=== PATIENT | female | born 1950 | race Asian ===

== ENCOUNTER → 2016-07-22 | Outpatient (CLI) | payer OTHER ==
--- NOTE | 2016-07-22 13:00 | MA ---
Screening Digital Mammogram With Tomosynthesis Clinical Indications: Routine screening. Technique: Standard digital cephalocaudal and tomosynthesis mediolateral oblique projections are obt ained. The digital images are processed by the Learnerator computer aided detection system. Comparison: July 2015, October 2014, May 2014 and July 2013 Breast density: C; The breast tissue is heterogeneously dense, which could obscure detection of small masses. Findings: CAD was reviewed. No suspicious findings are identified. Impression: Negative mammogram. BI-RADS 1. Recommendation: Routine screening is recommended in one year, as long as physical examination is jacobo ign in this patient with moderately dense breast parenchyma. [facility] will send a result letter to the patient. Negative mammography should not preclude additional workup of a clinically suspicious finding. The patient's information is entered into a reminder system with a target due date for her next mammo gram.
== END ==
LOC: FIMAGING 11:48
DX: Z12.31 Encounter for screening mammogram for malignant neoplasm of breast (principal)
CPT/HCPCS: G0202

== ENCOUNTER → 2017-07-25 | Outpatient (CLI) | payer OTHER | LOC: FIMAGING 12:00 | PROVIDERS: ATTEND Family Medicine | DX: Z12.31 Encounter for screening mammogram for malignant neoplasm of breast (principal) ==

== ENCOUNTER → 2017-08-15 | Outpatient (CLI) | payer OTHER | LOC: FIMAGING 13:05 | PROVIDERS: ATTEND Family Medicine | DX: Z13.820 Encounter for screening for osteoporosis (principal); M81.0 Age-related osteoporosis without current pathological fracture; Z78.0 Asymptomatic menopausal state ==

== ENCOUNTER 2017-09-24 17:41 | Observation (INO) | payer OTHER ==
--- NOTE | 2017-09-24 17:56 | CPEKG ---
Heart Rate: 79 RR Interval: 759 P-R Interval: 168 QRSD Interval: 92 QT Interval: 404 QTC Interval: 464 P [place]: 58 QRS [place]: 40 T Wave [place]: 10 EKG Severity - BORDERLINE ECG - EKG Impression: SINUS RHYTHM EKG Impression: PROBABLE LEFT ATRIAL ABNORMALITY EKG Impression: BORDERLINE T ABNORMALITIES, ANTERIOR LEADS Electronically Signed By: Jonnie Weaver 24-Sep-2017 20:31:20
--- NOTE | 2017-09-24 17:57 | EDPHY ---
General Time Seen by Provider: 09/24/17 17:49 Narrative: CHIEF COMPLAINT: Chest pressure HISTORY OF PRESENT ILLNESS: Patient complains of left-sided chest pressure that started at 4:30 p.m. Today. This started while she was at a constitution party. This was a faculty constitution party for [employer]. She was not doing anything exertional. It is described as a left-sided chest pressure that radiates through to her left shoulder blade 2 days ago. At that time she had no chest pain no. For brief moment was sharp and then return to dull pressure only. It is 3 or 4/10. Nonexertional. Nonradiating. No diaphoresis, nausea or vomiting. No shortness of breath. No trauma or injury. No recent travel, trauma or surgery. She does not take any exogenous hormones. No fever chills. No cough. No history of coronary artery disease or [place]. She has never had a stress test or heart catheterization. She has never smokes cigarettes. No diabetes mellitus. No CVA or TIA. She does have controlled hypertension with single drug therapy. She has no known family history of coronary artery disease but does have hypertension in the family. No other associated complaints or modifying factors. REVIEW OF SYSTEMS: Ten systems reviewed and are negative unless otherwise noted in the HPI PCP: Dr. Mojgan Tony SPECIALISTS: None PAST MEDICAL HISTORY: Eczema, questionable diagnosis of asthma, hypertension, borderline cholesterol levels, recent UTI status post Nitro-Bid therapy PAST SURGICAL HISTORY: No recent surgeries SOCIAL HISTORY: Never smoker. Exposed to secondary smoke for 30 years as a child in [place]. No drug or alcohol use. 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 EXAMINATION General Appearance: Alert, no distress. Non diaphoretic. Well-developed well- nourished Head: normocephalic, atraumatic Eyes: Pupils equal and round, no conjunctival pallor or injection ENT, Mouth: Mucous membranes moist Neck: Normal inspection, supple, non-tender. Respiratory: Lungs are clear to auscultation. No wheezing rhonchi or crackles Cardiovascular: Regular rate and rhythm.No murmur Gastrointestinal: Abdomen is soft and nontender. No tympany rigidity Back: non-tender, no bony abnormalities Neurological: GCS 15. A&O, nonfocal, normal gait Skin: Warm and dry, nonspecific dermatitis of the distal forearms and thenar eminence. This is reportedly chronic per patient. No petechiae or purpura. No desquamation. No splinter lesions or abnormalities of the nails or nail beds. Extremities: Nontender, no pedal edema. No pedal edema. No erythema of the extremities. No asymmetry of the extremities. No pain with passive dorsiflexion of the ankles. Psychiatric: Mood and affect normal DIFFERENTIAL DIAGNOSES: Including but not limited to ACS, PE, pleurisy, pericarditis, musculoskeletal pain MDM: 6:06 p.m. Left-sided chest pressure of 90 min duration. Nonexertional. No radiating pain. No predictable modifying factors. Her vital signs are within normal limits. She has no previous diagnosis of CAD. No family risk factors. Risk factors include age and hypertension. Heart score is 2 at this time with a pending troponin. She is in no acute distress resting comfortably on a cardiac rehabilitation program director with IV placement. I have ordered aspirin to be chewed. Chest x-ray pending. 6:23 p.m. CBC unremarkable. Chemistry unremarkable. The troponin and BNP are still pending. Her chest x-ray is currently being obtained at this time. 6:55 p.m. Troponin is negative. BNP is within normal limits. Chest x-ray has been read as no infiltrate with mild peribronchial thickening. I discussed the case with Dr. Weaver. She is currently at a heart score of 3. His recommendation and Plan to keep her here for a repeat troponin at 4 hour grabiel. And re-evaluated at that time. She remains in no acute distress on a cardiac rehabilitation program director. I discussed this with the patient she is agreeable with this plan of waiting for repeat troponin. This would place her at the 9:55 p.m. Repeat troponin. 8:00 p.m. Patient re-evaluated. She is resting comfortably. Her spouse is at bedside. She remains on a cardiac rehabilitation program director. Pain is minimal. 9:00 p.m. Patient re-evaluated. Resting comfortably 9:55 p.m. Repeat troponin ordered. This will be a 4 hr troponin for the patient. Initial troponin was completely within normal limits. 10:30 p.m. Troponin has returned. It is minimally elevated but none the less that is not normal. It is now 0.015. I have re-evaluated the patient. She is pain-free at this time S with the aspirin. This is without further pain medication or nitroglycerin. Given the patient's history, EKG and this elevated troponin, albeit minimally, I do feel that she is not safe for discharge home. She will require admission to the hospital for observation, serial troponins and possibly further intervention. I paged the hospitalist at this time. I discussed the plan with the patient's spouse and they agree to pee with this plan. 10:45 p.m. Case discussed with hospitalist Dr. Cotto. She will admit the patient to her service. She is admitted stable condition to PCU bed. She is requesting cardiology consultation I have paged them. 10:50 p.m. Case discussed with hadoop admin Dr. Chloé Rand. She will provide consultation 1st thing in the morning. She request repeat EKG. She is available at any time if something changes with the patient's status. 11:00 p.m. Repeat EKG performed. As read by me, there is single inverted T-wave in lead V3. The sub mm depression in the anterolateral leads no longer appreciated. He is admitted in stable condition. EKG interpretation: Dr. Weaver The sinus rhythm, rate 79. QT 404. PR160. Very mild, sub 1 mm depression in the anterolateral leads single inverted T-wave in V3 SUPERVISION: Patient was independently examined, but I discussed the case with my secondary supervising physician . Patient was evaluated and examined in conjunction with my secondary supervising physician as documented. We have both examined the patient. - Diagnostics Imaging Results: Imaging Impressions Chest X-Ray 09/24/17 18:07 Impression: Mild peribronchial thickening, with no focal infiltrate. - History Smoking Status: Never smoked - Objective Vital Signs: Initial Vital Signs Temperature (C) 98.8 F 09/24/17 17:44 Heart Rate 78 09/24/17 17:44 Respiratory Rate 16 09/24/17 17:44 Blood Pressure 156/97 H 09/24/17 17:44 O2 Sat (%) 97 09/24/17 17:44 O2 Delivery Mode Room Air Allergies/Adverse Reactions: amoxicillin Allergy (Verified 09/24/17 18:13) Home Medications: Medication Instructions Recorded Amlodipine Besylate 09/24/17 Laboratory Results: Laboratory Results 09/24/17 17:55 09/24/17 17:55 09/24/17 09/24/17 09/24/17 22:00 17:55 17:55 WBC RBC Hgb Hct MCV MCH MCHC RDW Plt Count MPV Neut % (Auto) Lymph % (Auto) [place] % (Auto) Eos % (Auto) Baso % (Auto) Nucleat RBC Rel Count Absolute Neuts (auto) Absolute Lymphs (auto) Absolute Monos (auto) Absolute Eos (auto) Absolute Basos (auto) Absolute Nucleated RBC Immature Gran % Immature Gran # PT 12.5 SEC SEC (12.0-15.0) INR 0.91 (0.83-1.16) APTT 30.2 SEC SEC (23.0-38.0) Sodium 142 mEq/L mEq/L (135-145) Potassium 3.8 mEq/L mEq/L (3.5-5.2) Chloride 101 mEq/L mEq/L (97-110) Carbon Dioxide 29 mEq/l mEq/l (22-31) Anion Gap 12 mEq/L mEq/L (8-16) BUN 17 mg/dL mg/dL (7-23) Creatinine 0.7 mg/dL mg/dL (0.6-1.0) Estimated GFR > 60 Glucose 91 mg/dL mg/dL (70-100) Calcium 9.3 mg/dL mg/dL (8.5-10.4) Troponin I 0.015 ng/mL ng/mL < 0.012 ng/mL ng/mL (0.000-0.034) (0.000-0.034) NT-Pro-B Natriuret Pep 72 pg/mL pg/mL (0-125) Lipase 176 IU/L IU/L (23-300) 09/24/17 17:55 WBC 5.29 10^3/uL 10^3/uL (3.80-9.50) RBC 4.84 10^6/uL 10^6/uL (4.18-5.33) Hgb 14.8 g/dL g/dL (12.6-16.3) Hct 43.2 % % (38.0-47.0) MCV 89.3 fL fL (81.5-99.8) MCH 30.6 pg pg (27.9-34.1) MCHC 34.3 g/dL g/dL (32.4-36.7) RDW 12.4 % % (11.5-15.2) Plt Count 219 10^3/uL 10^3/uL (150-400) MPV 8.7 fL fL (8.7-11.7) Neut % (Auto) 34.2 % L % (39.3-74.2) Lymph % (Auto) 47.1 % H % (15.0-45.0) [place] % (Auto) 7.6 % % (4.5-13.0) Eos % (Auto) 9.6 % H % (0.6-7.6) Baso % (Auto) 1.1 % % (0.3-1.7) Nucleat RBC Rel Count 0.0 % % (0.0-0.2) Absolute Neuts (auto) 1.81 10^3/uL 10^3/uL (1.70-6.50) Absolute Lymphs (auto) 2.49 10^3/uL 10^3/uL (1.00-3.00) Absolute Monos (auto) 0.40 10^3/uL 10^3/uL (0.30-0.80) Absolute Eos (auto) 0.51 10^3/uL H 10^3/uL (0.03-0.40) Absolute Basos (auto) 0.06 10^3/uL 10^3/uL (0.02-0.10) Absolute Nucleated RBC 0.00 10^3/uL 10^3/uL (0-0.01) Immature Gran % 0.4 % % (0.0-1.1) Immature Gran # 0.02 10^3/uL 10^3/uL (0.00-0.10) PT INR APTT Sodium Potassium Chloride Carbon Dioxide Anion Gap BUN Creatinine Estimated GFR Glucose Calcium Troponin I NT-Pro-B Natriuret Pep Lipase Medications Given: Discontinued Medications Aspirin (Aspirin) 324 mg PO EDNOW ONE Stop: 09/24/17 18:16 Last Admin: 09/24/17 18:16 Dose: 324 mg Departure - Departure Disposition: [facility] Acute Clinical Impression: Elevated troponin I level Chest pain Qualifiers: Chest pain type: unspecified Qualified Code(s): R07.9 - Chest pain, unspecified Condition: Good Referrals: Mojgan Tony MD [Primary Care Provider] - As per Instructions
[2017-09-24 18:06] LABS: PLATELET COUNT 219 10^3/uL (150-400)
[2017-09-24] MEDS ORDERED: ASPIRIN 81 MG CHEWABLE TAB PO ONE (18:15)
[2017-09-24 18:21] LABS: INR 0.91 (0.83-1.16); PROTIME(PATIENT) 12.5 SEC (12.0-15.0)
[2017-09-24] MEDS ORDERED: LORazepam 0.5 MG TAB PO PRN (22:49)
[2017-09-24] MEDS ORDERED: ONDANSETRON 4 MG/2 ML VIAL IVP PRN (22:49)
[2017-09-24] MEDS ORDERED: ACETAMINOPHEN 325 MG TAB PO PRN (22:49)
[2017-09-24] MEDS ORDERED: HYDROCODONE/APAP 5/325 TAB PO PRN (22:49)
--- NOTE | 2017-09-24 22:55 | CPEKG ---
Heart Rate: 74 RR Interval: 811 P-R Interval: 180 QRSD Interval: 84 QT Interval: 416 QTC Interval: 462 P [place]: 58 QRS [place]: 33 T Wave [place]: 9 EKG Severity - BORDERLINE ECG - EKG Impression: SINUS RHYTHM EKG Impression: PROBABLE LEFT ATRIAL ABNORMALITY EKG Impression: BORDERLINE T ABNORMALITIES, ANTERIOR LEADS Electronically Signed By: Dawson Norman 27-Sep-2017 11:16:26
[2017-09-24] MEDS ORDERED: NITROGLYCERIN 0.4 MG BTL SL PRN (22:57)
[2017-09-25 04:40] VITALS: O2SAT 94
[2017-09-25 06:18] LABS: PLATELET COUNT 190 10^3/uL (150-400)
--- NOTE | 2017-09-25 07:34 | PDGENHP ---
History and Physical - Chief Complaint Left Chest pressure - History of Present Illness Source-patient provides history appears reliable. EMR was reviewed and case discussed with ED provider. HPI-this is a very pleasant 67-year-old female with past medical history significant for hypertension, asthma, eczema, HLD who presents to the emergency department today with complaints of 90 min of chest pain that started approximately 4:30 p.m. Patient reports that time she initially did have some nausea and vomiting the day previously as well as some complaints of a left shoulder blade pain with radiation to her right deltoid area with some numbness tingling. At that time she did not have any chest pain or pressure. Today patient reports that she was driving to her dinner alliance party and develops nausea without vomiting. She denies any associated diaphoresis, shortness of breath. Patient reports that she developed a little bit of stabbing left chest pain that was only showed very short duration by few minutes followed by chest heaviness. Patient denies any improvement with position. She is concerned that she may have had a little bit of pectoral strain. Patient does remain quite active and exercises on a regular basis. She has not previously had any complaints of an add anginal type symptoms. Patient was previously recently placed on Macrobid for UTI. Patient without any family history of CAD or [place]. History Information - Allergies/Home Medication List Allergies/Adverse Reactions: amoxicillin Allergy (Verified 09/24/17 18:13) Home Medications: Amlodipine Besylate 09/24/17 [Last Taken Unknown] I have personally reviewed and updated: family history, medical history, social history, surgical history - Past Medical History Additional medical history: HTN, HDL, eczema, asthma, history UTI recently, history of leukopenia resolved. - Surgical History Additional surgical history: Left axillary abscess I&D in her youth. [place] tooth extraction. - Family History Additional family history: Mother and brother with history of hypertension. Mother is . Father from lung cancer. 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 Course status is limited. Patient is amenable to CPR but does not want intubation. Review of Systems Review of Systems: ROS: 10pt was reviewed & negative except for what was stated in HPI & below Constitutional: Reports: fever, recent illness (UTI treated). Denies: chills EENMT: Reports: no symptoms. Denies: nose congestion, sore throat Cardiac: Reports: chest pain, other (See HPI). Denies: edema, lightheadedness, palpitations Respiratory: Denies: cough, shortness of breath Gastrointestinal: Reports: nausea. Denies: vomitting, abdominal pain, diarrhea Genitourinary: Denies: dysuria, hematuria Muscolosketal: Reports: muscle pain (Left lateral pectoral muscle.). Denies: back pain Neurological: Reports: numbness (Left deltoid a few days ago now resolved.). Denies: headache, tremors, weakness Hematologic/Lymphatic: Denies: anemia Physical Exam Physical Exam: Selected Entries 09/24/17 17:44 Blood Pressure Automatic Method Heart Rate 78 Respiratory 16 Rate O2 Sat (%) 97 Temperature (C) 37.1 C Blood Pressure 156/97 H Mean Arterial 116 H Pressure (MAP) O2 Delivery Room Air Mode Temperature Oral Source Constitutional: no apparent distress, not in pain, other (NAD. Pleasant adult female is lying quietly in bed. She is pleasant and in good spirits.) Eyes: PERRL, anicteric sclera, EOMI, No scleral injection Ears, Nose, Mouth, Throat: moist mucous membranes, other (No nasal discharge.), No poor dentition Cardiovascular: regular rate and rhythym, no murmur, rub, or gallop, pulses symmetric bilaterally, No systolic murmur, No edema Peripheral Pulses: 2+: dorsalis-pedis (R), dorsalis-pedis (L) Respiratory: no respiratory distress, clear to auscultation, No rhonchi Gastrointestinal: normoactive bowel sounds, soft, non-tender abdomen, No tenderness, No distension Genitourinary: no bladder tenderness, No orta in urethra Skin: warm, erythema, rash (Patient with chronic skin changes to her hands and her feet. Some cracking. Persistent erythema without any induration.) Musculoskeletal: full muscle strength, No pain with ROM, No generalized weakness (Patient able to sit up independently.) Neurologic: AAOx3, sensation intact bilaterally, other (Nonfocal exam.), No facial droop Psychiatric: interacting appropriately, not anxious, not encephalopathic, thought process linear Lab Data & Imaging Review 09/25/17 06:10 03/26/18 06:10 WBC 4.45 10^3/uL (3.80-9.50) 09/25/17 06:10 RBC 4.50 10^6/uL (4.18-5.33) 09/25/17 06:10 Hgb 13.5 g/dL (12.6-16.3) 09/25/17 06:10 Hct 39.0 % (38.0-47.0) 09/25/17 06:10 MCV 86.7 fL (81.5-99.8) 09/25/17 06:10 MCH 30.0 pg (27.9-34.1) 09/25/17 06:10 MCHC 34.6 g/dL (32.4-36.7) 09/25/17 06:10 RDW 12.4 % (11.5-15.2) 09/25/17 06:10 Plt Count 190 10^3/uL (150-400) 09/25/17 06:10 MPV 8.3 fL (8.7-11.7) L 09/25/17 06:10 Neut % (Auto) 40.0 % (39.3-74.2) 09/25/17 06:10 Lymph % (Auto) 41.8 % (15.0-45.0) 09/25/17 06:10 [place] % (Auto) 6.5 % (4.5-13.0) 09/25/17 06:10 Eos % (Auto) 9.9 % (0.6-7.6) H 09/25/17 06:10 Baso % (Auto) 1.6 % (0.3-1.7) 09/25/17 06:10 Nucleat RBC Rel Count 0.0 % (0.0-0.2) 09/25/17 06:10 Absolute Neuts (auto) 1.78 10^3/uL (1.70-6.50) 09/25/17 06:10 Absolute Lymphs (auto) 1.86 10^3/uL (1.00-3.00) 09/25/17 06:10 Absolute Monos (auto) 0.29 10^3/uL (0.30-0.80) L 09/25/17 06:10 Absolute Eos (auto) 0.44 10^3/uL (0.03-0.40) H 09/25/17 06:10 Absolute Basos (auto) 0.07 10^3/uL (0.02-0.10) 09/25/17 06:10 Absolute Nucleated RBC 0.00 10^3/uL (0-0.01) 09/25/17 06:10 Immature Gran % 0.2 % (0.0-1.1) 09/25/17 06:10 Immature Gran # 0.01 10^3/uL (0.00-0.10) 09/25/17 06:10 PT 12.5 SEC (12.0-15.0) 09/24/17 17:55 INR 0.91 (0.83-1.16) 09/24/17 17:55 APTT 30.2 SEC (23.0-38.0) 09/24/17 17:55 Sodium 144 mEq/L (135-145) 09/25/17 06:10 Potassium 3.8 mEq/L (3.5-5.2) 09/25/17 06:10 Chloride 110 mEq/L (97-110) 09/25/17 06:10 Carbon Dioxide 26 mEq/l (22-31) 09/25/17 06:10 Anion Gap 8 mEq/L (8-16) 09/25/17 06:10 BUN 14 mg/dL (7-23) 09/25/17 06:10 Creatinine 0.7 mg/dL (0.6-1.0) 09/25/17 06:10 Estimated GFR > 60 09/25/17 06:10 Glucose 77 mg/dL (70-100) 09/25/17 06:10 Calcium 9.1 mg/dL (8.5-10.4) 09/25/17 06:10 Troponin I 0.020 ng/mL (0.000-0.034) 09/25/17 06:10 NT-Pro-B Natriuret Pep 72 pg/mL (0-125) 09/24/17 17:55 Lipase 176 IU/L (23-300) 09/24/17 17:55 Laboratory Tests 09/24/17 09/24/17 09/24/17 17:55 17:55 17:55 WBC 5.29 RBC 4.84 Hgb 14.8 Hct 43.2 MCV 89.3 MCH 30.6 MCHC 34.3 RDW 12.4 Plt Count 219 MPV 8.7 Neut % (Auto) 34.2 L Lymph % (Auto) 47.1 H [place] % (Auto) 7.6 Eos % (Auto) 9.6 H Baso % (Auto) 1.1 Nucleat RBC Rel Count 0.0 Absolute Neuts (auto) 1.81 Absolute Lymphs (auto) 2.49 Absolute Monos (auto) 0.40 Absolute Eos (auto) 0.51 H Absolute Basos (auto) 0.06 Absolute Nucleated RBC 0.00 Immature Gran % 0.4 Immature Gran # 0.02 PT 12.5 INR 0.91 APTT 30.2 Sodium 142 Potassium 3.8 Chloride 101 Carbon Dioxide 29 Anion Gap 12 BUN 17 Creatinine 0.7 Calcium 9.3 Troponin I < 0.012 NT-Pro-B Natriuret Pep 72 Lipase 176 Imaging Review: Portable AP Chest, at 6:21 PM Clinical History: 67-year-old female with left-sided chest and shoulder pain, and abdominal pressure. Comparison Study: Chest, dated 04/06/2015. Findings: Telemetry monitoring lead lines are present. The cardiac and mediastinal silhouette is normal in size. There is mild central perihilar bronchial wall thickening. There is no focal alveolar consolidation. There is no pleural effusion, peripheral interstitial edema, or pneumothorax. The osseous structures are age-appropriate. Air-filled splenic flexure is seen in the left upper quadrant of the abdomen. There is no free, subdiaphragmatic air. Impression: Mild peribronchial thickening, with no focal infiltrate. EKG additional interpertation: 09/24/[id number] in the 70s. Q-wave in lead 3 with a T-wave inversion. Patient also with T-wave inversions in the anterior leads. There is less than 1 mm depression in the lateral leads. QTC is 464. Repeat EKG at 2250 showing similar findings with persistent small Q-wave in 3 T- wave and 2 wave inversions in anterior leads but less noticeable on ST depression in the lateral leads. Assessment & Plan Assessment: Chest pain (Acute) - patient currently chest pain-free. She received aspirin in the emergency department. She has some subtle EKG changes with a T-wave inversions in the anterior leads and some less than 1 mm depressions in the lateral leads. Cardiology was consulted from the emergency department and will plan to consult on this patient this morning. Serial enzymes have been minimally trending upward but still within normal range. Patient's current heart score is 5. She did not receive any Lovenox and I requested ED to discuss with on cardiology prior to her arrival on PCU. EKG changes - nonspecific EKG changes with some improvement in patient's less than [address] depressions on repeat EKG after chest pain had resolved. Will plan to leave nitroglycerin and morphine available p.r.n. For pain. Chronic medical issues Benign essential hypertension - blood pressures at this time are acceptable. Patient was previously on lisinopril but started to develop some facial edema and this was previously discontinued. She is not 100% sure of her current home regimen but medication list is noting amlodipine. Will plan to verify and continue. Asthma - patient without any acute exacerbation at this time. Will continue monitor and provide albuterol if needed. Eczema - patient with chronic dermatitis in her hands and her feet that remains unchanged. She utilizes topical treatment on patient can resume at discharge. HLD - patient reports a borderline cholesterol. Will plan to repeat a panel this morning. Consider a treatment as appropriate pending results and cardiac workup. FEN - IV fluid overnight. Patient will be NPO pending Cardiology recommendations. Electrolyte monitoring and replacement p.r.n.. PPX-SCDs. Holding anticoagulation pending Cardiology evaluation. Cor status-patient is limited. She does not want intubation but amenable to cardiac resuscitation. Disposition-patient is admitted to observation status at this time on PCU for close cardiac monitoring pending further evaluation and recommendations from Cardiology.
[2017-09-25 08:40] VITALS: BP 122/74; PULSE 76; RESP 14; TEMP 98.5
--- NOTE | 2017-09-25 08:59 | CPEKG ---
Heart Rate: 73 RR Interval: 822 P-R Interval: 168 QRSD Interval: 90 QT Interval: 420 QTC Interval: 463 P [place]: 73 QRS [place]: 67 T Wave [place]: 47 EKG Severity - NORMAL ECG - EKG Impression: SINUS RHYTHM Electronically Signed By: Dawson Norman 27-Sep-2017 11:15:52
--- NOTE | 2017-09-25 11:08 | GCON ---
[f rep st] CONSULTATION CARDIOLOGY CONSULT DATE OF CONSULTATION: 09/25/2017 CHIEF COMPLAINT: Chest pain. HISTORY OF PRESENT ILLNESS: We were asked by Dr. Christie to visit with this patient. The patient is a pleasant 67-year-old female with hypertension, dyslipidemia, mild aortic regurgitation. She has no known history of coronary disease. Recently, she has had troubles with a UTI and then a reaction to the antibiotic. A couple of days ag o, she started experiencing some right shoulder pain that occurred after yoga. Over the weekend, she had a little bit of nausea and headache without vomiting or diarrhea. Yesterday, she was out for he r usual walk and started to have some chest pain. This resolved with rest; however, when she got kingsley e, she noticed some chest pressure that occurred for about 2 hours. Therefore, she presented to the ER. In the ER, her pain resolved with aspirin, and she has not had recurrent pain. She has not had dyspn ea, presyncope, syncope, or palpitations. She denies a history of lower extremity edema. The only c ardiac testing she has had is the echocardiogram in our office in 2014 that showed normal ejection fr action and mild mitral regurgitation. REVIEW OF SYSTEMS: A full 10-point review of systems was performed and was negative except that whic h is outlined in History of Present Illness. PAST MEDICAL HISTORY: 1. Hypertension. 2. Mild aortic regurgitation. 3. Dyslipidemia. 4. Reactive airways disease. OUTPATIENT MEDICATIONS: Norvasc 2.5 mg daily, Symbicort, vitamin D3, vitamin B12, multivitamin, omeg a-3 fatty acids. SOCIAL HISTORY: The patient does not smoke cigarettes or drink significant amounts of alcohol. FAMILY HISTORY: Not applicable to the current case. PHYSICAL EXAM: VITAL SIGNS: Blood pressure 122/74, heart rate 76, oxygen saturation is 94% on room air. Respiratory rate is 14. She is afebrile. GENERAL: Well-appearing older female in no distress . HEENT: Sclerae clear and free of jaundice. Mucous membranes are moist. Normocephalic, atraumati c. CARDIOVASCULAR: JVP is less than 10. Carotids equal 2+ without bruit. Regular rate and rhythm without murmur, rub, or gallop. LUNGS: Clear to auscultation bilaterally without wheezes, rhonchi, or rales. ABDOMEN: Soft, nontender, nondistended without bruits, masses, hepatosplenomegaly. EXTRE MITIES: Warm, well perfused of denies cyanosis, clubbing, or edema. NEURO: Alert and oriented x3 w ithout gross focal neurological deficits. Appropriate mood and affect. MUSCULOSKELETAL: She does h ave some mild tenderness to palpation over her left pectoral and parasternal region. There is no jacklyn h. DATA: CBC is essentially normal except for minimally elevated eosinophil count. INR normal. Sodium 144, potassium 3.8, chloride 110, bicarb 26, BUN 14, creatinine 0.7. Troponin negative x4. BNP 72. Lipase is 176. LDL cholesterol is 88 with total cholesterol of 173, triglycerides 107, and HDL of 64. EKG reviewed by me x2: Normal sinus rhythm without ischemic changes. Chest x-ray reviewed by me: Mild peribronchial thickening without acute cardiopulmonary process. Echocardiogram in our office in 2014 showed mild normal LV size and systolic function. Mild aortic r egurgitation. ASSESSMENT AND PLAN: A 67-year-old female with cardiac risk factors of age, hypertension, and appare ntly past history of dyslipidemia. She presents with chest pain that has some typical and some atypi bronson features. Her cardiac biomarkers are reassuring as is her normal EKG. She is currently not havi ng any ongoing chest pain. 1. Chest pain: Further risk stratification with an exercise stress test is reasonable. She would b e a candidate for primary prevention aspirin as an outpatient. More recommendations to follow based on the results of her stress test. If this is normal, she may be discharged. 2. Hypertension: Currently well controlled. Continue Norvasc. 3. History of mild aortic regurgitation: She can get an echocardiogram as an outpatient in the next 6 months or so. Thank you for allowing us to participate in this patient's care. We will follow with you. /[id number]/MODL
--- NOTE | 2017-09-25 12:18 | CPR ---
[f rep st] NONINVASIVE CARDIAC PROCEDURE REPORT DATE OF PROCEDURE: 09/25/2017 PROCEDURE PERFORMED: Treadmill stress test. REASON FOR TEST: Chest pain. RESTING EKG: Shows a regular sinus rhythm with a ventricular rate of 90. The 3-lead shows T-wave in version. She has Q-wave in V2. Resting blood pressure is 102/70. STRESS TEST PORTION: She was exercised according to the Eric protocol for a total of 9 minutes. Erasmo kim tolerated this well. She had no chest pain, shortness of breath, or other anginal symptoms. Her p eak heart rate was 166, peak blood pressure 146/80. MET level 10.2. She surpassed her 100% maximal heart rate. There were no EKG changes during exercise. Her T-wave by the end of exercise had gone u pright in V3. She had no arrhythmias. RECOVERY: She did spontaneously recover with resting heart rate 100, resting blood pressure 110/80 a t 4 minutes and 41 seconds post exercise. She had no recovery arrhythmias. At this time, she efren mckeon is stable to return to her room. /[id number]/MODL
--- NOTE | 2017-09-25 12:50 | PDDCSUM ---
Discharge Summary Discharge Summary: DISCHARGE DIAGNOSES: -chest pain, resolved -ruled out [place] -unremarkable treadmill exercise stress test -history of diastolic cardiac dysfunction, no indication of acute cardiac issues at this time CONSULTANTS: Dr. Chloé Rand PROCEDURES: Eric protocol exercise treadmill stress testing HOSPITAL COURSE SUMMARY: This patient came to the emergency room after having an episode of left-sided chest discomfort. It was a somewhat atypical syndrome but with some features consistent with coronary disease. She had resolution of the symptom. There was no evidence of heart failure, arrhythmia, vital sign abnormalities. Troponins were negative repeatedly and EKGs did not change. She had no arrhythmia on cardiac monitoring here. She underwent treadmill exercise stress testing which was a low risk study with no indicators for any high risk situation and nothing that looked ischemic. There is no diagnostic finding to explain her chest pain but with found no evidence of any high risk cause of the chest pain. I did describe to the patient that there can be false negative result on treadmill stress testing and the either way if she has ongoing symptoms she should seek further assessment to find the cause of these symptoms and determine what what treatment might be necessary. PENDING TEST RESULTS: None MEDICATION CHANGES: None FOLLOW-UP PLAN: With primary care in 2-4 weeks
--- NOTE | 2017-09-25 14:03 | ASDISCHSUM ---
Discharge Information Plan Status:Home with No Needs Medically Cleared to Leave:09/25/2017 Discharge Date:09/25/2017 CM D/C Disposition:Home, Routine, Self-Care ADT D/C Disposition:Home, Routine, Self-Care Projected Discharge Date:09/25/2017 Transportation at D/C: Discharge Delay Reason: Follow-Up Date:09/25/2017 Discharge Slot: Final Diagnosis: Placement Information Patient Contact Information Contact Name:PEEWEE Relationship: Address:[address] City:[place] Alternate Phone: State/Zip Code:[place] [address] Email: Financial Information Financial Class:HMO and PPO Plans Primary Plan Desc:[employer] Primary Plan Number:[id number] Secondary Plan Desc: Secondary Plan Number: Assessment Information LACE LACE Length of stay for Answers: Less than 1 day current admission Acuity / Level of Answers: No Care: Did the patient have an inpatient admission? Comorbidities - select Answers: Chronic pulmonary disease all that apply Other Notes: HTN,HDL, exzema, asthma , h /o UTI, h/o leukopenia # of Emergency department Answers: 1-2 visits in the last 6 months Score: 4 Date Signed: 09/25/2017 02:02 PM Electronically Signed By:Teri Washington RN Case Management Discharge Plan Note Case Management Discharge Discharge Order Complete? Answers: Yes Patient to Obtain Answers: Independently Medications Discharge Comments Notes: 09/25/2017 Case Management Note Pt to d/c independent with follow up with PCP. There are no case management d/c needs identfied. Date Signed: 09/25/2017 02:03 PM Electronically Signed By:Teri Washington RN Intervention Information
[2017-09-25] MEDS ORDERED: BUDESONIDE/FORMOTEROL 160/4.5 60 PUFFS/MDI IH SCH (21:00)
[2017-09-26] MEDS ORDERED: OMEGA-3 FATTY ACIDS 1,000 MG CAP PO SCH (09:00)
[2017-09-26] MEDS ORDERED: MULTIVITAMINS 1 EACH TAB PO SCH (09:00)
[2017-09-26] MEDS ORDERED: Herbals/Supplements -Info Only PO SCH (09:00)
[2017-09-26] MEDS ORDERED: CYANO/VITAMIN B12 1000 MCG TAB PO SCH (09:00)
[2017-09-26] MEDS ORDERED: CHOLECALCIFEROL VIT D3 1,000 UNITS TAB PO SCH (09:00)
== END 2017-09-25 14:10 | disposition home or self-care (01) ==
LOC: F2W 23:56
PROVIDERS: ADMIT Family Medicine; ATTEND Family Medicine
DX: R07.9 Chest pain, unspecified (principal); J45.909 Unspecified asthma, uncomplicated; I10 Essential (primary) hypertension; Z77.22 Contact with and (suspected) exposure to environmental tobacco smoke (acute) (chronic)
CPT/HCPCS: 71045; 93005; 93017; G0378

== ENCOUNTER → 2018-09-20 | Outpatient (CLI) | payer OTHER | LOC: FIMAGING 10:24 | PROVIDERS: ATTEND Family Medicine | DX: Z12.31 Encounter for screening mammogram for malignant neoplasm of breast (principal); Z80.3 Family history of malignant neoplasm of breast ==